=== PATIENT | male | born 1995 | race Caucasian/White ===

== ENCOUNTER 2021-06-08 20:23 | Emergency (ER) | payer OTHER ==
[~2021-06-08] VITALS: Ht 188 cm; Wt 79.4 kg
[2021-06-08] MEDS ORDERED: CYMBALTA60 MG PO (21:41)
[2021-06-08] MEDS ORDERED: BUSPIRONE HCL15 MG PO (21:41)
[2021-06-08] MEDS ORDERED: REMERON45 M1 PO (21:44)
[2021-06-08] MEDS ORDERED: GUANFACINE HCL E1 MG PO (21:45)
--- NOTE | 2021-06-10 19:56 | EKG ---
[facility] [address] [place], [place] [address] Signed Sinus bradycardia Lateral infarct , age undetermined Abnormal ECG No previous ECGs available Confirmed by DAMIAN CONNER DO ([id number]) on 06/10/2021 7:56:36 PM Electronically Signed By: DAMIAN CONNER DO 06/10/211955 PATIENT NAME: HUSSEIN MILLS Electrocardiogram DATE OF : [birth year] PHYSICIAN: DAMIAN CONNER DO REPORT #: [id number] REPORT IS CONFIDENTIAL AND NOT TO BE RELEASED WITHOUT AUTHORIZATION
== END 2021-06-10 16:24 ==
LOC: ED 20:23
DX: E10.65 Type 1 diabetes mellitus with hyperglycemia (principal); R45.851 Suicidal ideations; F17.200 Nicotine dependence, unspecified, uncomplicated; Z20.822 Contact with and (suspected) exposure to COVID-19
CPT/HCPCS: 80053; 81001; 84443; 85025; 96374; 99285-25; A9270; A9270-GY; C9803; G0480; J1815; J7030; U0003